=== PATIENT | female | born 1995 | race Caucasian/White ===

== ENCOUNTER → 2017-10-12 | Day surgery (SDC) | payer BC ==
[~2017-10-12] MED LIST: DIAZEPAM 5 MG TABLET PO ONE
--- NOTE | 2017-10-13 05:54 | Operative Note ---
DATE: 10/12/2017. PREOPERATIVE DIAGNOSIS: RIGHT CARPAL TUNNEL SYNDROME. POSTOPERATIVE DIAGNOSIS: RIGHT CARPAL TUNNEL SYNDROME. PROCEDURE: Right carpal tunnel release. STAFF SURGEON: Sunny Leyva M.D. ANESTHESIA: Local. PREPARATION: ChloraPrep. INDIVIDUAL CONSIDERATIONS: None. DESCRIPTION OF THE PROCEDURE: The patient was taken to the operating room and placed supine on the operating room table. Her right arm was prepped and draped in the usual fashion. The patient had 1% Lidocaine with epinephrine infiltrated along the longitudinal wrist crease volarly. The limb was elevated, and the tourniquet was inflated to 250 mm Hg. Sharp dissection was carried down through the skin and subcutaneous tissue. Small veins were coagulated with the Bovie. Once through the skin, I carefully went through the ulnar fascia, through the adductor brevis, and then carefully through the transverse metacarpal ligament under direct view distally to the superficial arch and proximally to the antebrachial fascia. The underlying median nerve was contused by the tack. There were no tumors present. After irrigation the tourniquet was let down, and hemostasis was obtained with the Bovie. The skin was approximated with interrupted 4-0 nylon in a vertical mattress fashion. A sterile, bulky compressive hand dressing was applied. The patient tolerated the procedure well. Needle and sponge counts were correct. Estimated blood loss was minimal. She was taken back to recovery in good condition. There were no complications. cc: Allen Zhao M.D. ELROY
== END | disposition home or self-care (01) ==
LOC: SUR 08:27
PROVIDERS: ATTEND Orthopaedic Surgery
DX: G56.01 Carpal tunnel syndrome, right upper limb (principal)
CPT/HCPCS: 81025; 64721; J3490

== ENCOUNTER 2017-10-26 09:25 | Day surgery (SDC) | payer BC ==
[2017-10-26] MEDS ORDERED: LIDOCAINE 1% W/EPI 1:200,000 MPF 30ML SQ ONE (09:26)
[2017-10-26] MEDS ORDERED: DIAZEPAM 5 MG TABLET PO ONE (09:26)
--- NOTE | 2017-10-26 20:39 | Operative Note ---
DATE OF SURGERY: 10/26/2017 PREOPERATIVE DIAGNOSIS: LEFT CARPAL TUNNEL SYNDROME. POSTOPERATIVE DIAGNOSIS: LEFT CARPAL TUNNEL SYNDROME. PROCEDURE: LEFT CARPAL TUNNEL RELEASE. STAFF SURGEON: Sunny Leyva MD ANESTHESIA: Local. PREPARATION: ChloraPrep. INDIVIDUAL CONSIDERATIONS: None. PROCEDURE: The patient was taken to the Operating Room and placed supine on the operating table. Her left arm was prepped and draped in the usual fashion. The patient had 2% Lidocaine with Epinephrine infiltrated along the longitudinal wrist crease volarly. The limb was then elevated, the tourniquet was inflated to 250 mmHg. The patient had an incision along the longitudinal wrist crease volarly and then stopping just short of the flexion crease of the wrist at a 45 degree angle ulnarly. Sharp dissection carried down through the skin and subcutaneous tissues. Small veins were coagulated with a Bovie. Sharp dissection carried down through the palmar fascia through the adductor brevis and then carefully through the transverse metacarpal fascia distally to the superficial arch and proximally to the antebrachial fascia. The recurrent branch was intact. The median nerve was compressed but there were no tumors. The tourniquet was let down and hemostasis was obtained with the Bovie and compression. After irrigation, the skin was approximated with multiple interrupted 4-0 nylon in a vertical mattress fashion and a sterile Bulkee compressive hand dressing was applied. The patient tolerated the procedure well. Needle and sponge counts were correct. Estimated blood loss was minimal and she was taken back to Recovery in good condition. There were no complications. cc: Dr. Geovanny Zhao JOB NUMBER: [id number] MTDD
== END 2017-10-26 12:10 | disposition home or self-care (01) ==
LOC: SUR 09:25
PROVIDERS: ATTEND Orthopaedic Surgery
DX: G56.02 Carpal tunnel syndrome, left upper limb (principal)
CPT/HCPCS: 81025